=== PATIENT | male | born 1940 | race Caucasian/White ===

== ENCOUNTER → 2020-02-11 09:32 | Outpatient (CLI) | payer MEDICARE, SELFPAY ==
[2020-02-12 02:06] LABS: COVID19 Sendout Not Detected (Not Detect)
== END ==
PROVIDERS: Visit Provider Nurse Practitioner
DX: Z11.59 Encounter for screening for other viral diseases (principal)
CPT/HCPCS: 87635

== ENCOUNTER 2020-02-14 09:26 | Inpatient (IN) | payer MEDICARE, SELFPAY ==
[2020-02-05 13:02] VITALS: BMI 41.1
[2020-02-14] VITALS (16 sets, daily range): BP systolic 123–148; BP diastolic 61–102; PULSE 47–67; RESP 8–24; TEMP 35.7–36.4; O2SAT 89–99; BMI 41.1
--- NOTE | 2020-02-14 | DI.RAD.S_ITS ---
PROCEDURE: XR LUMBAR SPINE 2-3V INDICATIONS: L3-5 TLIF TECHNIQUE: 2 intraoperative fluoroscopic views of the lumbar spine were acquired. COMPARISON: None. FINDINGS: Intraoperative fluoroscopic images shows transpedicular fusion of L3 through L5 vertebral bodies with intervertebral disc spacer placement. IMPRESSION: Fluoro guidance was provided intraoperatively for transpedicular fusion of L3 through L5 vertebral bodies. Dictated by: Morris Spencer M.D. on 02/14/2020 at 14:41 Approved by: Morris Spencer M.D. on 02/14/2020 at 14:42
[2020-02-14] MEDS: LACTATED RINGERS 1,000 ML 42 ML IV ×3 (10:43→15:32)
[2020-02-14 11:00] LABS: Add Manual Diff / Slide Review NO; Basophils Absolute Auto 100 /uL (0-100); Basophils Percent Auto 1.1 % (0-2); Eosinophils Absolute Auto 600 /uL (0-450); Eosinophils Percent Auto 8.3 % (2-4); Hemoglobin 12.6 g/dL (13.5-17.5); Lymphocytes Absolute Auto 1800 /uL (1100-4500); Lymphocytes Percent Auto 25.2 % (25-40); Mean Corpuscular HGB Conc 33.9 % (30-36); Mean Corpuscular Hemoglobin 35.4 PG (26-34); Mean Corpuscular Volume 104.3 fL (80-100); Monocytes Absolute Auto 900 /uL (0-900); Monocytes Percent Auto 12.4 % (3-14); Neutrophils Absolute Auto 3800 /uL (1500-7000); Platelet Count 217 X10^3/uL (150-400); Red Blood Cell Count 3.55 X10^6/uL (4.5-5.9); Red Cell Distribution Width 14.3 % (11.6-14.8); White Blood Cell Count 7.1 X10^3/uL (4.5-11.0)
--- NOTE | 2020-02-14 11:01 | PM.PREOP ---
Pre-operative Note COVID-19 COVID-19 status: Negative Result date/Date tested (Pos, Neg/Pending): 02/12/20 Interval Note History & Physical reviewed/Exam performed by Physician: Yes Changes to H&P: No
[2020-02-14 11:34] LABS: Alanine Aminotransferase 38 IU/L (<50); Albumin Globulin Ratio 1.5 (1.0-2.8); Alkaline Phosphatase 121 U/L (38-126); Aspartate Aminotransferase 38 IU/L (17-59); BUN Creatinine Ratio 26.9 (6-22); Bilirubin Total 0.8 mg/dL (0.2-1.3); Blood Urea Nitrogen 25 mg/dL (9-20); Calcium 9.6 mg/dL (8.4-10.2); Carbon Dioxide 29 mmol/L (22-32); Chloride 105 mmol/L (98-107); Estimated Glomerular Filt Rate > 60.0 mL/min (>60); Globulin 2.6 g/dL (1.7-4.1); Glucose 93 mg/dL (80-110); HEMOLYSIS < 15 (0-50); Potassium 3.9 mmol/L (3.4-5.1); Sodium 139 mmol/L (137-145); Total Protein 6.6 g/dL (6.3-8.2)
[2020-02-14] MEDS: CEFAZOLIN 2 GM/100 ML FROZ.PIGGY IV ×2 (11:58→20:43)
--- NOTE | 2020-02-14 12:36 | SUR.OPER ---
Prone on spine table, head in foam head support, padded chest and pelvic supports, gel pad at knees, lower legs supported by pillows; nipples, genitalia and toes free of pressure, arms secured on foam padded arm boards at <90 degrees abduction. Tape over blanket at thigh secured to table.
[2020-02-14] MEDS: BUPIVACAINE LIPOSOME 266 MG/20 ML VIAL INJ (12:49)
[2020-02-14] MEDS: BUPIVACAINE 0.25% W/ EPI 30 ML VIAL INJ (12:50)
[2020-02-14] MEDS: ACETAMINOPHEN IV 1,000 MG/100 ML VIAL 400 MG IV (13:28)
--- NOTE | 2020-02-14 15:37 | P.OP_ITS ---
Operative Date/Time/Diagnoses Date of procedure: 02/14/20 Time of procedure: 12:37 Pre-op diagnosis: 1. L3-4, L4-5 spondylolisthesis 2. L3-4, L4-5 spinal stenosis with neurogenic claudication Post-op diagnosis: same Procedure & Clinicians Procedure: 1. L3-4, L4-5 Postero-lateral and posterior interbody fusion 2. L3-4, L4-5 interbody cage placement. 3. L3-4, L4-5 decompressive laminectomy with bilateral facetecomies 4. L3-4, L4-5 Posterior segmental instrumentation 5. [place] of bone marrow from iliac crest 6. Utilization of microsurgical technique and operating microscope Same procedure as scheduled: Yes Indications: Patient has been having chronic back pain and worsening lumbar radiculopathy. Patient failed multiple conservative management with worsening pain weakness and numbness in her lower extremity. Patient has been having difficulty performing activity of daily living. After discussing risks benefits of treatment options, patient elected proceed with surgery. Surgeon: Maris Sierra Psychologist Military Personnel: Jillian Gutierrez Click Yes if Unassisted: No Anesthesia Type: General Operative Notes Closure Type: primary Specimen(s): none sent Prosthetic devices, grafts, tissues, transplants, or devices: Globus revolve screws, Rise cages Applied: catheter Estimated Blood Loss (mL): 100 Blood products transfused: none Procedure in detail: Patient was seen in the preoperative area. Risks and benefits of the surgery was discussed with the patient. Informed consent was obtained from the patient and placed in the chart. Surgical site was marked. Patient was taken to the operative room. General anesthesia was administered. Prophylactic antibiotic was given to the patient less than 30 min before the incision was made. Patient was placed into a prone position on the Ziggy table. Patient's back was then prepped and draped in the sterile fashion. Time- out was performed at this time. Using AP and lateral C-arm imaging the interval between L3-4, L4-5 was identified and marked on patient's back. A 2 inch incision 2 in from midline was made on the right side first. The fascia was incised in line with skin incision. Globus MARS retractors was placed inside the incision and docked onto the L3 and L4 lamina. Using microsurgical technique and operating microscope, a L3 and L4 laminectomy and L3-4, L4-5 facetectomy was performed using a Kerrison rongeur. The disc space at L3-4, L4-5 was identified. And a total diskectomy was performed at L3-4, L4-5 level. The endplates were decorticated using a rasp and shaver. The patient was found to have severe central and neuroforaminal stenosis at both levels. Decompression was successful after the laminectomy and facetectomy was completed at both levels. The total diskectomy and decortication was performed at L3-4, L4-5 level in order to to accomplish a L3- 4, L4-5 fusion. The local bone from the laminectomy and facetectomy was saved for local bone grafting. After the total diskectomy and decortication was completed, Trifecta bone graft material was combined with local bone that was harvested earlier. At this time, a separate skin is incision was made over the iliac crest. A Jamshidi needle was inserted into the iliac crest through a separate skin incision. 5 cc of bone marrow aspiration was obtained through the separate skin incision using a Jamshidi needle from the iliac crest. The bone marrow aspiration was combined with local bone and the Trifecta bone grafting material. The bone grafting material was placed into the L3-4, L4-5 interbody space along with two cages, one expandable cage at each level. The cages were expanded to their maximum height using the torque limiting screwdriver. At this time a mirror image incision was made on the left side. The fascia was incised in line with the skin incision. Globus MARS retractor was inserted and docked onto the L3-4, L4-5 posterolateral gutter. Using the power drill, posterior-lateral decortication was performed at L3-4, L4-5 level until bleeding cortical bone was identified. The remaining bone grafting material was placed into the L3-4, L4-5 posterior lateral gutter he order to accomplish posterolateral fusion at the L3-4, L4-5 levels. Using the double C-arm technique, pedicle screws were placed into the L3, L4, L5 pedicles bilaterally. This was done by placing the Jamshidi needle into the pedicles, then placing the guidewires over the Jamshidi needle, and finally placing the cannulated screws over the guidewires bilaterally. After the pedicle screws were placed, 2 titanium rods was locked into the heads of the pedicle screws using locking caps and torque limiting screwdriver. Total 6 pedicles screws were placed. After all the hardware was placed, and confirmed with AP and lateral C-arm imaging, the wound was then irrigated with sterile normal saline and packed with Ray-Pasquale gauze for 3 min to accomplish hemostasis. After the gauze was removed the deep fascia was closed with #1 Vicryl suture. The subcutaneous layer was closed with 2-0 Vicryl. The skin was closed with skin stephanie. Patient tolerated the procedure well. There were no complications. Complications: none Post-operative Condition: stable Disposition: PACU Plan for aftercare: Admit to inpatient hospital
[2020-02-14] MEDS: fentaNYL 100 MCG/2 ML INJ IV ×3 (15:42→16:06)
[2020-02-14] MEDS: HYDROMORPHONE 2 MG INJ IV ×3 (15:46→16:10)
[2020-02-14] MEDS: OXYCODONE IR 5 MG TABLET PO (16:20)
[2020-02-14] MEDS: hydrOXYzine 50 MG/ML INJ 25 MG IM (16:24)
[2020-02-14] MEDS: SODIUM CHLORIDE 0.9% 1,000 ML 100 ML IV (17:57)
[2020-02-14] MEDS: HYDROMORPHONE 0.5 MG INJ IV ×2 (18:12→21:16)
[2020-02-14] MEDS: DOCUSATE 100 MG CAPSULE PO (20:43)
[2020-02-14] MEDS: SENNOSIDES 8.6 MG TABLET 17.2 MG PO (20:43)
[2020-02-14] MEDS: ATORVASTATIN 20 MG TABLET 40 MG PO (20:43)
[2020-02-14] MEDS: GABAPENTIN 300 MG CAPSULE 900 MG PO (20:43)
[2020-02-14] MEDS: TRAZODONE 50 MG TABLET 150 MG PO (20:43)
[2020-02-14] MEDS: VIT C/E/ZN/COPPR/LUTEIN/ZEAXAN CAPSULE 1 CAP PO (20:44)
[2020-02-14] MEDS: OXYCODONE IR 10 MG TABLET PO (21:16)
[2020-02-15] VITALS (10 sets, daily range): BP systolic 105–148; BP diastolic 52–75; PULSE 42–77; RESP 16–24; TEMP 36.1–36.7; O2SAT 94–98
--- NOTE | 2020-02-15 03:14 | PC.NURSE ---
0020 Shift assessment performed, noted back dressing was saturated with bloody drainage. Reinforced dressing with ABD pad. will monitor.
[2020-02-15] MEDS: CEFAZOLIN 2 GM/100 ML FROZ.PIGGY IV (03:55)
[2020-02-15] MEDS: OXYCODONE IR 10 MG TABLET PO ×5 (04:09→20:34)
[2020-02-15] MEDS: SODIUM CHLORIDE 0.9% FLUSH 10 ML IV ×3 (05:00→20:35)
[2020-02-15 06:26] LABS: Hematocrit 33.7 % (41-53); Hemoglobin 11.3 g/dL (13.5-17.5)
[2020-02-15] MEDS: VIT C/E/ZN/COPPR/LUTEIN/ZEAXAN CAPSULE 1 CAP PO ×2 (09:10→20:35)
[2020-02-15] MEDS: DOCUSATE 100 MG CAPSULE PO ×2 (09:10→20:34)
[2020-02-15] MEDS: GABAPENTIN 300 MG CAPSULE 900 MG PO ×2 (09:10→20:34)
[2020-02-15] MEDS: ESCITALOPRAM 10 MG TABLET 20 MG PO (09:10)
[2020-02-15] MEDS: FOLIC ACID 0.4 MG TABLET 1.2 MG PO (09:11)
[2020-02-15] MEDS: POTASSIUM CHLORIDE 10 MEQ TAB PO (09:11)
[2020-02-15] MEDS: CYANOCOBALAMIN (VITAMIN B-12) 500 MCG TABLET 1000 MCG PO (09:11)
[2020-02-15] MEDS: FLUTICASONE 120 SPRAY/16 GM SPRAY.SUSP NASAL (09:13)
--- NOTE | 2020-02-15 09:40 | PT.IIE ---
Current Diagnoses Other secondary scoliosis, lumbar region (02/14/20) Spondylolisthesis, lumbar region (02/14/20) Spinal stenosis, lumbar region without neurogenic claudication (02/14/20) Surgery Performed Operation Date: 02/14/20 11:15 Actual Procedures p L3-4, L4-5 TLIF w. posterior instrumentation - Maris Sierra MD Surgical History (Last Updated 02/05/20 @ 13:29 by Carol Lara, RN) History of arthroplasty of both knees (Acute) History of carpal tunnel release of both wrists (Acute) History of colonoscopy (Acute) History of repair of left rotator cuff (Acute) History of repair of right rotator cuff (Acute) History of total right hip arthroplasty (Acute) Hx of bilateral cataract extraction (Acute) Hx of cholecystectomy (Acute) Hx of tonsillectomy (Acute) Hx of umbilical hernia repair (Acute) Medical History (Last Updated 02/06/20 @ 10:50 by Carol Lara RN) Anxiety (Acute) Arthritis (Acute) Ascending aorta dilation (Acute) Carotid artery disease (Acute) Chronic bronchitis (Acute) Chronic diastolic heart failure (Acute) Depression (Acute) Easy bruisability (Acute) Fragile skin (Acute) HLD (hyperlipidemia) (Acute) HTN (hypertension) (Acute) Incomplete right bundle branch block (RBBB) (Acute) Numbness (Acute) GANESH on CPAP (Acute) Sciatica (Acute) Seasonal allergies (Acute) Spinal stenosis of lumbar region (Acute) Spondylolisthesis (Acute) Physical Therapy Inpatient Evaluation/Re-Eval M1 PT/OT-IP Prior Functional Status Start: 02/15/20 13:04 Freq: NEEDED Status: Active Protocol: Document 02/15/20 09:40 AB (Rec: 02/15/20 13:30 AB [id number]) Medical Review Prior Functional Status Medical History Reviewed Yes Communication able to make needs known Mobility and Gait pt stated that he is modified independent with all mobilities using his 4WW for ambulation; only able to ambulate short distances for outdoor mobility and uses electric scooter when doing grocery shopping Social History Household Members spouse Living Arrangements House Number of Floors (Floors) One Floor Number of Stairs To Enter/Railing? 2 steps without rails to enter : pt stated that he usual use his SPC and hold on to window sill for the steps Home Environment High Toilet,Walk in Shower,Tub /Shower Home Equipment Front Wheel Walker,Four Wheel Walker,Straight Cane,Shower Seat without Backrest,Hand Held Shower Additional Social History Comment pt stated that his spouse will not be able to assist him much; spouse uses a 4WW, has a pacemaker and has bad knees per pt pt has an adjustable bed at home M2 PT-IP Current Condition Start: 02/15/20 13:04 Freq: NEEDED Status: Active Protocol: Document 02/15/20 09:40 AB (Rec: 02/15/20 13:30 AB [email or web address]) Physical Therapy Current Condition Current Condition Evaluation Date 02/15/20 Treatment Diagnosis s/p L3-4, L4-5 fusion/lami; difficulty in walking Onset Date 02/14/20 Precautions Lumbar Precautions Log Roll,No Twisting,Limit Bending,Lifting Restriction of 10 lbs,Gait Belt above Incisional Area M3 PT-IP Subjective Start: 02/15/20 13:04 Freq: NEEDED Status: Active Protocol: Document 02/15/20 09:40 AB (Rec: 02/15/20 13:30 AB [id number]) Subjective Physical Therapy Visit Type Type Initial Evaluation Visit Start Time 09:40 Visit Stop Time 10:13 Total Visit Minutes 33 Number of WAREHOUSE LOGISTICS COORDINATOR Visits 0 Physical Therapy Visit Comments Patient Comments pt is agreeable to do PT Therapy Pain Assessment Pain When Pain Assessed At Rest Pain Present Pain Present Pain Reported Location back Intensity 1 Scale Used Numeric (0 - 10) Pain Management Techniques Apply Cold,Distraction, Modification of Treatment,Re- positioning,Timing of Activity with Medications M4 PT-IP Mobility and Gait Start: 02/15/20 13:04 Freq: NEEDED Status: Active Protocol: Document 02/15/20 09:40 AB (Rec: 02/15/20 13:30 AB [email or web address]) PT-Bed Mobility Assessment Rolling Type of Rolling Log Rolling Level of Assist Minimal Assistance,1 Person Assistance Supine to Sit Supine to Sit Minimal Assistance,1 Person Assistance PT-Transfer Assessment Sit to and From Stand Sit to and from Stand Contact Guard Assistance,1 Person Assistance,Use of Upper Extremities Equipment Transfer Assistive Device Gait Belt,Front Wheeled Walker Orthotic/Prosthetic Devices or Brace: No Transfers Transfer Destination Chair Transfer Technique ambulated using FWW Transfer Ability Level of Assist Minimal Assistance,1 Person Assistance,Use of Upper Extremities Comments Mobility Comments educated pt on back precautions and log roll bed mobility. completed supine to sit min A and cues. pt was able to sit on EOB SBA. pt without complaints. stated pain is ~ 1/10. completed sit to stand CGA and ambulated in room using FWW min A ~ 30 ft. pt agreed to sit up onchair. positioned on chair. call light and table placed within reach. Ice pack provided. Gait Assessment Gait Gait Assistance Required: Minimum Assistance Distance (Feet) 30 Able to Maintain Weight Bearing Status Yes During Gait Assistive Devices Assistive Device Gait Belt,Front Wheeled Walker Orthotic/Prosthetic Devices or Brace: No Gait Deviations General Gait Pattern Antalgic,Decreased Stride Length,Decreased Feet Clearance,Step-to Gait Factors Limiting Gait Function Factors Limiting Gait Function Decreased Activity Tolerance, Decreased Sensation,Decreased Strength,Incoordination,Pain, Poor Balance Comments Gait Comments pls refer to mobility section for details PT-Balance Assessment Sitting Balance and Reactions Static Sitting Balance Ability Good Dynamic Sitting Balance Ability Good Standing Balance and Reactions Static Standing Balance Ability Fair Dynamic Standing Balance Ability Fair Device Used FWW M5 PT-IP Objective Assessments Start: 02/15/20 13:04 Freq: NEEDED Status: Active Protocol: Document 02/15/20 09:40 AB (Rec: 02/15/20 13:30 AB [id number]) Orientation Orientation/Cognition Level of Alertness Alert Orientation Name,Place,Situation Language Function Ability Hard of Hearing Safety Awareness Understands Safety Issues Memory Description No Deficits Noted Gross Range of Motion Lower Extremity ROM Assessment Within Functional Limits Strength Lower Extremity Strength Assessment Within Functional Limits Sensation Assessment Sensation Gross Sensation Right LE Impaired Comments Sensation Comments stated that RLE has decrease sensation and can only feel ~ 90% Muscle Tone Muscle Tone WNL Yes M6 PT-IP Treatment Start: 02/15/20 13:04 Freq: NEEDED Status: Active Protocol: Document 02/15/20 09:40 AB (Rec: 02/15/20 13:30 AB [id number]) Physical Therapy Treatment Education Education Provided Precautions,Weight Bearing Status,Post-Op Packet,Safety M7 PT-IP Assessment and Plan Start: 02/15/20 13:04 Freq: NEEDED Status: Active Protocol: Document 02/15/20 09:40 AB (Rec: 02/15/20 13:30 AB [email or web address]) PT Summary Assessment and Plan Potential Rehabilitation Potential Good Status of Condition at Evaluation Stable Summary Impairments Pain,ROM,Strength,Balance, Coordination,Sensation,Tone, Cognition,Bed Mobility, Transfers,Gait,Activity Tolerance Assessment Summary pt requiring CGA to min A with mobility and uses FWW for ambulation. pt plans to go home. derick will not be able to assist pt much due to her own medical issues. stated that her daughter may assist but does not stay at home with them. pt will likely progress with mobility. will assess progress for safe d/c. Goals Bed Mobility Goal Standby Assistance Transfer Goal Standby Assistance,Front Wheeled Walker Gait Goal Standby Assistance,Front Wheel Walker Gait Distance 100 Other Goals up/down 2 steps SPC SBA Days to Meet Goals 5 Frequency of Treatment Frequency Of Treatment Twice a Day Treatment Plan Physical Therapy Treatment Plan Bed Mobility Training,Transfer Training,Gait Training, Therapeutic Exercise,Balance Retraining,Post Op Education, Discharge Planning,Hot or Cold Pack,Neuromuscular Re-ed, Coordination Retraining,Manual Therapy Other Recommendations and Next Treatment ambulation; stair climbing Focus Recommendations To Nursing Amount of Assist Needed 1 Person Assist Discharge Recommendations PT Discharge Recommendations Home with Assistance Transportation Needs at Discharge Private Vehicle
[2020-02-15] MEDS: ACETAMINOPHEN 325 MG TABLET 650 MG PO (10:01)
[2020-02-15] MEDS: FUROSEMIDE 20 MG TABLET PO (10:02)
[2020-02-15] MEDS: LOSARTAN 25 MG TABLET PO (10:02)
[2020-02-15] MEDS: AMLODIPINE 5 MG TABLET PO (10:02)
[2020-02-15] MEDS: METOPROLOL ER 50 MG TABLET PO (10:03)
--- NOTE | 2020-02-15 10:08 | PM.PNPO.1 ---
Subjective Subjective Date Patient Seen: 02/15/20 Time Patient Seen: 10:08 Interval history: POD #1 s/p L3-[address] Sierra. Patient's pain has been well controlled and reports a 1/10. He is with physical therapy at the moment and was able to sit up on edge of bed. He has a Vogel catheter in place. Does not report any significant prostate issues. He does sound short of breath when he moves, but this has been reported as baseline for him prior to surgery. Exam Vital Signs (past 8 hours): - 02/15/20 04:25 02/15/20 07:51 02/15/20 09:09 Temperature 96.9 F L 97.8 F Pulse Rate 67 56 L 65 Respiratory Rate 24 20 16 Blood Pressure 148/74 H 105/62 Pulse Oximetry 98 98 95 02/15/20 10:02 02/15/20 10:03 Temperature Pulse Rate 51 L 51 L Respiratory Rate Blood Pressure 128/71 128/71 Pulse Oximetry Oxygen Delivery Method Room Air Oxygen Flow Rate 0 Narrative Exam Narrative: Patient is sitting on edge of bed. Dressing on the back is completely saturated and reinforced last night. When dressing was removed right side did have some active bleeding. It did stop prior to new dressing being applied. There is quite a bit of ecchymosis on the right side. New dressing applied. Calves are soft, compressible, nontender bilaterally. SCDs were on prior to getting up. Objective Labs Result Diagrams: 02/15/20 06:00 02/14/20 10:42 Labs: Laboratory Results - last 24 hr 02/14/20 02/14/20 02/14/20 10:42 10:42 10:42 WBC 7.1 RBC 3.55 L Hgb 12.6 L Hct 37.0 L MCV 104.3 H MCH 35.4 H MCHC 33.9 RDW 14.3 Plt Count 217 Neut % (Auto) 53.0 Lymph % (Auto) 25.2 [place] % (Auto) 12.4 Eos % (Auto) 8.3 H Baso % (Auto) 1.1 Neut # (Auto) 3800 Lymph # (Auto) 1800 [place] # (Auto) 900 Eos # (Auto) 600 H Baso # (Auto) 100 Sodium 139 Potassium 3.9 Chloride 105 Carbon Dioxide 29 BUN 25 H Creatinine 0.93 Estimated GFR > 60.0 BUN/Creatinine Ratio 26.9 H Glucose 93 Calcium 9.6 Total Bilirubin 0.8 AST 38 ALT 38 Alkaline Phosphatase 121 Total Protein 6.6 Albumin 4.0 Globulin 2.6 Albumin/Globulin Ratio 1.5 Blood Type O Positive Antibody Screen Negative 02/15/20 06:00 WBC RBC Hgb 11.3 L Hct 33.7 L MCV MCH MCHC RDW Plt Count Neut % (Auto) Lymph % (Auto) [place] % (Auto) Eos % (Auto) Baso % (Auto) Neut # (Auto) Lymph # (Auto) [place] # (Auto) Eos # (Auto) Baso # (Auto) Sodium Potassium Chloride Carbon Dioxide BUN Creatinine Estimated GFR BUN/Creatinine Ratio Glucose Calcium Total Bilirubin AST ALT Alkaline Phosphatase Total Protein Albumin Globulin Albumin/Globulin Ratio Blood Type Antibody Screen Assessment & Plan Post-op Postoperative Procedures: Procedures Operation Date: 02/14/20 11:15 Actual Procedures Side Surgeon p L3-4, L4-5 TLIF w. posterior instrumentation Maris Sierra MD Patient will mobilize with physical therapy today. No excessive bending, lifting, or twisting. Vogel catheter will be removed today. Continue to monitor dressing, and bleeding. Will wait to restart ASA until risk of bleeding and risk of epidural hematoma has decreased, likely on postop day 4 or 5. His morbid obesity and coronary artery disease is likely attributing to his shortness of breath with PT, especially since this is his baseline. Continue current pain control. Patient will likely discharge home with in next 2-3 days. Quality VTE Deep Vein Thrombosis/Pulmonary Embolism Present on Admission: No
--- NOTE | 2020-02-15 11:03 | CM.DANOTE ---
DCP: Case received, EMR reviewed and met with patient. Introduced self and role. Was able to obtain information from patient regarding his baseline activity status prior to surgery, as well as his current living situation. DCP assessment completed with information currently available. Patient is a 79 year old male who admitted yesterday morning to the care of the orthopedic team. PCP: Dr. Jansen at [facility]. Payer: confirmed: Medicare/[employer]. Patient came to the hospital for a surgical procedure. He had L3-4, L4-5, posteo-lateral interbody fusion. Patient has had history of spinal stenosis. Met with patient in his room. He is alert and oriented. He was sitting up in bed. Stated, before he had his surgery, he would have never been able to sit up like that. Stated, he had to sleep on his side. Patient uses a cane/walker at home. He resides with his spouse, Shoshana. Stated, she has bad knees, so it's hard for her to get around. He mentioned that his daughter, Cyndi, would help out, but would not be staying with him. Stated that she lives in [facility], as patient resides in [facility]. Stated that he has 2 steps to get into his home. Mentioned, does not want rehab. P: DCP to continue to follow closely. Will see how he does with P.T. Goal for patient is home. Soni Reyes RN/Vending Machine Technician
--- NOTE | 2020-02-15 13:25 | OT.IP.EVAL ---
Current Diagnoses Other secondary scoliosis, lumbar region (02/14/20) Spondylolisthesis, lumbar region (02/14/20) Spinal stenosis, lumbar region without neurogenic claudication (02/14/20) Surgery Performed Operation Date: 02/14/20 11:15 Actual Procedures p L3-4, L4-5 TLIF w. posterior instrumentation - Maris Sierra MD Past Medical History (Last Updated 02/06/20 @ 10:50 by Carol Lara, RN) Anxiety (Acute) Arthritis (Acute) Ascending aorta dilation (Acute) Carotid artery disease (Acute) Chronic bronchitis (Acute) Chronic diastolic heart failure (Acute) Depression (Acute) Easy bruisability (Acute) Fragile skin (Acute) HLD (hyperlipidemia) (Acute) HTN (hypertension) (Acute) Incomplete right bundle branch block (RBBB) (Acute) Numbness (Acute) GANESH on CPAP (Acute) Sciatica (Acute) Seasonal allergies (Acute) Spinal stenosis of lumbar region (Acute) Spondylolisthesis (Acute) Surgical History (Last Updated 02/05/20 @ 13:29 by Carol Lara RN) History of arthroplasty of both knees (Acute) History of carpal tunnel release of both wrists (Acute) History of colonoscopy (Acute) History of repair of left rotator cuff (Acute) History of repair of right rotator cuff (Acute) History of total right hip arthroplasty (Acute) Hx of bilateral cataract extraction (Acute) Hx of cholecystectomy (Acute) Hx of tonsillectomy (Acute) Hx of umbilical hernia repair (Acute) Occupational Therapy Inpatient Evaluation/Re-Eval M1 PT/OT-IP Prior Functional Status Start: 02/15/20 13:04 Freq: NEEDED Status: Active Protocol: Document 02/15/20 09:40 AB (Rec: 02/15/20 13:30 AB [id number]) Medical Review Prior Functional Status Medical History Reviewed Yes Communication able to make needs known Mobility and Gait pt stated that he is modified independent with all mobilities using his 4WW for ambulation; only able to ambulate short distances for outdoor mobility and uses electric scooter when doing grocery shopping Social History Household Members spouse Living Arrangements House Number of Floors (Floors) One Floor Number of Stairs To Enter/Railing? 2 steps without rails to enter : pt stated that he usual use his SPC and hold on to window sill for the steps Home Environment High Toilet,Walk in Shower,Tub /Shower Home Equipment Front Wheel Walker,Four Wheel Walker,Straight Cane,Shower Seat without Backrest,Hand Held Shower Additional Social History Comment pt stated that his spouse will not be able to assist him much; spouse uses a 4WW, has a pacemaker and has bad knees per pt pt has an adjustable bed at home M1 PT/OT-IP Prior Functional Status Start: 02/15/20 15:32 Freq: NEEDED Status: Active Protocol: Document 02/15/20 15:34 RM (Rec: 02/15/20 15:53 RM [id number]) Medical Review Prior Functional Status Medical History Reviewed Yes Communication able to make needs known Mobility and Gait pt stated that he is modified independent with all mobilities using his 4WW for ambulation; only able to ambulate short distances for outdoor mobility and uses electric scooter when doing grocery shopping Activities of Daily Living and IADL's (I) w/ ADLs, cooking, and dishes. assists with heavy housekeeping. Social History Household Members spouse Living Arrangements House Number of Floors (Floors) One Floor Number of Stairs To Enter/Railing? 2 stairs to enter Home Environment High Toilet,Walk in Shower,Tub /Shower Home Equipment Four Wheel Walker,Shower Seat without Backrest,Hand Held Shower,Charge Entry,Sock Aid Employment Status Retired Additional Social History Comment Reports recieved blankmaker and sock aid in 2015 w/ hip surgery, but would like to review use with dressing while here. M2 OT-IP Current Condition Start: 02/15/20 15:32 Freq: Status: Active Protocol: Document 02/15/20 15:34 RM (Rec: 02/15/20 15:53 RM [id number]) Occupational Therapy Current Condition Current Condition Evaluation Date 02/15/20 Treatment Diagnosis L3-L5 TLIF d/t spondylolisthesis Diagnosis Onset Date 02/15/20 Post Operative Precautions Lumbar Precautions Log Roll,No Twisting,Limit Bending,Lifting Restriction of 10 lbs,Gait Belt above Incisional Area Weight Bearing Status Weight Bearing Status Weight Bear as Tolerated M3 OT- IP Subjective and Pain Start: 02/15/20 15:32 Freq: Status: Active Protocol: Document 02/15/20 15:34 RM (Rec: 02/15/20 15:53 RM [id number]) OT- Subjective Occupational Therapy Visit Type Type Initial Evaluation Visit Start Time 13:25 Visit Stop Time 13:55 Total Visit Minutes 30 Occupational Therapy Visit Comments Patient/Caregiver Goals Return home with his . OT Pain Assessment Pain When Pain Assessed During Mobility Location back Intensity 6 Scale Used Numeric (0 - 10) M4 OT- IP ADL's Start: 02/15/20 15:32 Freq: Status: Active Protocol: Document 02/15/20 15:34 RM (Rec: 02/15/20 15:53 RM [id number]) OT ADL-Grooming General Evaluation Grooming Ability Contact Guard Assistance Areas Needing Assistance Retrieving/Set-up of Grooming Items OT ADL-Toileting General Evaluation Toileting Ability Standby Assistance Devices Toileting Assistive Devices Grab Bars M6 OT- IP Functional Cognition Start: 02/15/20 15:32 Freq: Status: Active Protocol: Document 02/15/20 15:34 RM (Rec: 02/15/20 15:53 RM [id number]) Cognitive Factors Limiting Selfcare Function Cognitive Ability Patient Orientation Name,Month,Date,Year,Place, Situation Attention Span Ability Capable of Focused Attention, Capable of Sustained Attention Ability to Follow Commands Able to Follow Multi-Step Commands Safety Awareness Underestimates Need for Assistance OT- Vision and Hearing OT- Hearing Assessment OT- Hearing Assessment WFL OT- Vision Assessment Visual Acuity WFL M7 OT- IP Mobility and Balance Start: 02/15/20 15:32 Freq: Status: Active Protocol: Document 02/15/20 15:34 RM (Rec: 02/15/20 15:53 RM [id number]) OT- Bed Mobility Assessment Rolling Type of Rolling Log Rolling Level of Assistance Standby Assistance Supine to Sit Supine to Sit Assist Standby Assistance Sit to Supine Sit to Supine Assist Standby Assistance Scooting Scooting Up and Down in Bed Standby Assistance OT-Transfer Assessment Sit to and From Stand Sit to and from Stand Standby Assistance Transfers Transfer Ability Standby Assistance Technique Transfer Destination Bed,Toilet Devices Transfer Assistive Devices Front Wheeled Walker OT- Gait Assessment Gait Gait Assistance Required: Contact Guard Assist Assistive Devices Assistive Device Front Wheeled Walker OT- Balance Assessment Standing Balance and Reactions Dynamic Standing Balance Ability Fair M9 OT- IP Assessment and Plan Start: 02/15/20 15:32 Freq: Status: Active Protocol: Document 02/15/20 15:34 RM (Rec: 02/15/20 15:53 RM [id number]) OT Summary Assessment and Plan Potential Rehabilitation Potential Good Analytic Complexity at Evaluation Moderate Patient is limited this session by pain. Tolerating ambulation to bathroom for toileting and hand hygiene at sink, but then required return to bed d/t increased pain. Also reports having long handled equipment from prior hip surgery but requires review for use with LB drsg following lumbar precautions. Will benefit from additional intervention to improve independence prior to discharge home. Summary OT Impairments Pain,Balance,Functional Mobility,Dressing,Toileting, Bathing,Toilet Transfers, Shower Transfers,Activity Tolerance Goals Dressing Goal Independent,Charge Entry,Sock Aid Toileting Goal Independent Bathing Goal Independent Toilet Transfer Goal Independent Shower Transfer Goal Independent Frequency of Treatment Frequency Of Treatment Once a Day Treatment Plan OT Treatment Plan ADL Training,Functional Mobility,Therapeutic Exercises Discharge Recommendations OT Discharge Recommendations Home with Assistance
--- NOTE | 2020-02-15 14:30 | PT.IPTN ---
Current Diagnoses Other secondary scoliosis, lumbar region (02/14/20) Spondylolisthesis, lumbar region (02/14/20) Spinal stenosis, lumbar region without neurogenic claudication (02/14/20) Surgery Performed Operation Date: 02/14/20 11:15 Actual Procedures p L3-4, L4-5 TLIF w. posterior instrumentation - Maris Sierra MD Physical Therapy Treatment Note M2 PT-IP Current Condition Start: 02/15/20 13:04 Freq: NEEDED Status: Active Protocol: Document 02/15/20 09:40 AB (Rec: 02/15/20 13:30 AB [id number]) Physical Therapy Current Condition Current Condition Evaluation Date 02/15/20 Treatment Diagnosis s/p L3-4, L4-5 fusion/lami; difficulty in walking Onset Date 02/14/20 Precautions Lumbar Precautions Log Roll,No Twisting,Limit Bending,Lifting Restriction of 10 lbs,Gait Belt above Incisional Area M3 PT-IP Subjective Start: 02/15/20 13:04 Freq: NEEDED Status: Active Protocol: Document 02/15/20 14:30 AB (Rec: 02/15/20 16:40 AB [id number]) Subjective Physical Therapy Visit Type Type Treatment Note Visit Start Time 14:30 Visit Stop Time 15:15 Total Visit Minutes 45 Number of ROPE TIER Visits 0 Physical Therapy Visit Comments Patient Comments pt is agreeable to do PT Therapy Pain Assessment Pain When Pain Assessed At Rest Pain Present Pain Present Pain Reported Location back Intensity 1 Scale Used increases with mobility Pain Management Techniques Modification of Treatment,Re- positioning,Timing of Activity with Medications M4 PT-IP Mobility and Gait Start: 02/15/20 13:04 Freq: NEEDED Status: Active Protocol: Document 02/15/20 14:30 AB (Rec: 02/15/20 16:40 AB [id number]) PT-Bed Mobility Assessment Rolling Type of Rolling Log Rolling Level of Assist Standby Assistance Supine to Sit Supine to Sit Standby Assistance Sit to Supine Sit to Supine Standby Assistance PT-Transfer Assessment Sit to and From Stand Sit to and from Stand Contact Guard Assistance, Minimal Assistance,1 Person Assistance,Use of Upper Extremities Equipment Transfer Assistive Device Gait Belt,Front Wheeled Walker Orthotic/Prosthetic Devices or Brace: No Transfer Ability Level of Assist Contact Guard Assistance, Minimal Assistance,1 Person Assistance,Use of Upper Extremities Comments Mobility Comments completed log roll bed moblity SBA. completed sit to stand CGA to min A with initial unsteadiness and stated due to RLE pain. stated that RLE is chronic. ambulated in room using FWW CGA to min A. agreed to ambulate in hallway and completed ~ 100 ft using FWW CGA. completed up/down step stool using SPC on L and side of FWW (simulating window sill/ledge at home) CGA. completed 2 sets. pt requested to go back to bed afterwards and completed sit to supine SBA. positioned in bed. call light and table placed within reach. Gait Assessment Gait Gait Assistance Required: Contact Guard Assist,Minimum Assistance Distance (Feet) 100 Able to Maintain Weight Bearing Status Yes During Gait Assistive Devices Assistive Device Gait Belt,Front Wheeled Walker Orthotic/Prosthetic Devices or Brace: No Gait Deviations General Gait Pattern Antalgic,Decreased Stride Length,Decreased Feet Clearance,Step-to Gait Factors Limiting Gait Function Factors Limiting Gait Function Decreased Activity Tolerance, Decreased Strength,Limited Range of Motion,Pain,Poor Balance Comments Gait Comments pls refer to mobility section for details Stair Climbing Assessment Evaluation Level of Assist On Stairs Contact Guard Assistance,1 Person Assistance Devices Stair Climbing Assistive Devices Straight Cane,Right Railing Technique/Endurance Stair Climbing Direction Ascend and Descend Stair Climbing Technique Step to Step Number of Steps Climbed 1 Stair Climbing Set # Repetitions (reps) 2 Comments Stair Climbing Comments completed up/down step stood using SPC on L and edge of FWW as ledge (simulating home set set); completed with CGA M5 PT-IP Objective Assessments Start: 02/15/20 13:04 Freq: NEEDED Status: Active Protocol: Document 02/15/20 09:40 AB (Rec: 02/15/20 13:30 AB [id number]) Orientation Orientation/Cognition Level of Alertness Alert Orientation Name,Place,Situation Language Function Ability Hard of Hearing Safety Awareness Understands Safety Issues Memory Description No Deficits Noted Gross Range of Motion Lower Extremity ROM Assessment Within Functional Limits Strength Lower Extremity Strength Assessment Within Functional Limits Sensation Assessment Sensation Gross Sensation Right LE Impaired Comments Sensation Comments stated that RLE has decrease sensation and can only feel ~ 90% Muscle Tone Muscle Tone WNL Yes M6 PT-IP Treatment Start: 02/15/20 13:04 Freq: NEEDED Status: Active Protocol: Document 02/15/20 14:30 AB (Rec: 02/15/20 16:40 AB [id number]) Physical Therapy Treatment Education Education Provided Precautions,Safety M7 PT-IP Assessment and Plan Start: 02/15/20 13:04 Freq: NEEDED Status: Active Protocol: Document 02/15/20 14:30 AB (Rec: 02/15/20 16:40 AB [id number]) PT Summary Assessment and Plan Potential Rehabilitation Potential Good Summary Impairments Pain,ROM,Strength,Balance, Coordination,Sensation,Bed Mobility,Transfers,Gait, Activity Tolerance Progress Towards Goals Slow Progress due to Activity Tolerance Assessment Summary pt requiring CGA to min A with mobility. stated that his son may provide some assistance if needed. pt plans to go home with family to assist. Goals Bed Mobility Goal Independent Transfer Goal Independent,Front Wheeled Walker Gait Goal Standby Assistance,Front Wheel Walker Gait Distance 100 Other Goals up/down 2 steps SPC on L and R side ledge SBA Days to Meet Goals 5 Frequency of Treatment Frequency Of Treatment Twice a Day Treatment Plan Physical Therapy Treatment Plan Bed Mobility Training,Transfer Training,Gait Training, Therapeutic Exercise,Balance Retraining,Post Op Education, Discharge Planning,Hot or Cold Pack,Neuromuscular Re-ed, Coordination Retraining,Manual Therapy Other Recommendations and Next Treatment ambulation; stair climbing Focus Recommendations To Nursing Amount of Assist Needed 1 Person Assist Discharge Recommendations PT Discharge Recommendations Home with Assistance Transportation Needs at Discharge Private Vehicle
--- NOTE | 2020-02-15 14:40 | PC.NURSE ---
SHIFT SUMMARY PATIENT'S DRSG HAD BEEN RE-INFORCED D/T SATURATION ONTO BLUE PAD UNDER PATIENT ON NOC SHIFT. ELI ESTEVEZ NOTIFIED OF SAME THIS AM ON MORNING ROUNDS. WHILE PATIENT SITTING AT BEDSIDE W/ PHYSICAL THERAPY IN SESSION, THIS LANGUAGE ASST REMOVED DRSG AND HERB ASSESSED. THERE IS A LARGE DARK PURPLE HEMATOMA TO THE RIGHT INCISION WHICH HAS SOME SCANT ACTIVE DRAINAGE. PRESSURE APPLIED WITH GAUZE. HERB APPLIED 4X4'S FOLDED OVER EACH INCISION AND LARGE TEGADERM X2. THERE IS CURRENTLY ONLY A TRACE AMOUT OF DRAINAGE AT THE EDGE OF THE GAUZE TO THE UPPER LEFT CORNER. PATIENT UP TO RECLINER W/ PHYSICAL THERAPY THIS AM AFTER AMB IN RM. AMBULATED AGAIN IN ROOM AT 1130 AND ASSISTED BACK TO BED D/T INCREASED BACK PAIN. PATIENT TOLERATING PAIN W/ 2-3/10 PAIN AT REST, AND UP TO 6-8/10 PAIN WITH ACTIVITY. PATIENT DOES APPEAR MILDLY SOB AT TIMES EVEN AT REST. MAINTAINS ADEQUATE SATS ON RA. STATES, MY BREATHING IS ALWAYS LIKE THIS. PATIENT IS A COOPERATIVE AND PLEASANT GENTLEMAN.
[2020-02-15] MEDS: hydrOXYzine pamoate 25 MG CAPSULE PO (16:23)
--- NOTE | 2020-02-15 17:42 | P.PN_ITS ---
Exam Vital Signs (past 8 hours): - 02/15/20 10:02 02/15/20 10:03 02/15/20 13:00 Temperature 98.1 F Pulse Rate 51 L 51 L 66 Respiratory Rate 18 Blood Pressure 128/71 128/71 140/75 Pulse Oximetry 94 02/15/20 15:37 Temperature 96.9 F L Pulse Rate 77 Respiratory Rate 20 Blood Pressure 140/72 Pulse Oximetry 97 Oxygen Delivery Method Room Air Oxygen Flow Rate 0 Objective Labs Result Diagrams: 02/15/20 06:00 02/14/20 10:42 Labs: Laboratory Results - last 24 hr 02/15/20 06:00 Hgb 11.3 L Hct 33.7 L Assessment & Plan Assessment & Plan narrative: Patient is POD#1 s/p L3-5 TLIF. He walked in the [address] with PT today. There was a dressing change this AM with NEHAL Rodriguez for saturated right sided gauze. On exam, his dressing has serosangunous fluid on the dressing, more on the right side. He is neuro intact on exam. He reports he feels better when leaning on his right side, unchanged compare to before surgery. He reports he already feel a lot better now than before surgery. I changed his dressing and applied gauze and abd pad with some thickness for pressure dressing on the wound. There is no active bleeding or oozing after removing the old gauze. The incisions are perfectly dry. There is echymosis on the skin adjacent to the incision, stephanie are intact without any dehiscience. He is doing quite well 1 day after his surgery. He needs additional PT for mobility training. He may need home health or inpatient rehab depending on how he does tomorrow with PT. His pain is controlled well by the current protocol. If he's still here on Monday, I will re-assess him. He will be seen by the on- call orthopedist tomorrow. He is currently stable without acute issues. Continue current medical management. Quality VTE Deep Vein Thrombosis/Pulmonary Embolism Present on Admission: No
[2020-02-15] MEDS: SENNOSIDES 8.6 MG TABLET 17.2 MG PO (20:34)
[2020-02-15] MEDS: TRAZODONE 50 MG TABLET 150 MG PO (20:34)
[2020-02-15] MEDS: ATORVASTATIN 20 MG TABLET 40 MG PO (20:34)
[2020-02-16] VITALS (8 sets, daily range): BP systolic 121–140; BP diastolic 63–85; PULSE 51–84; RESP 16–22; TEMP 36.1–37; O2SAT 91–98
[2020-02-16] MEDS: OXYCODONE IR 10 MG TABLET PO ×4 (05:14→20:50)
[2020-02-16] MEDS: MAGNESIUM HYDROXIDE 30 ML UDC PO (08:00)
[2020-02-16] MEDS: HYDROMORPHONE 0.5 MG INJ IV ×2 (08:00→09:51)
[2020-02-16] MEDS: AMLODIPINE 5 MG TABLET PO (08:02)
[2020-02-16] MEDS: GABAPENTIN 300 MG CAPSULE 900 MG PO ×2 (08:02→20:49)
[2020-02-16] MEDS: DOCUSATE 100 MG CAPSULE PO ×2 (08:02→20:49)
[2020-02-16] MEDS: METOPROLOL ER 50 MG TABLET PO (08:02)
[2020-02-16] MEDS: CYANOCOBALAMIN (VITAMIN B-12) 500 MCG TABLET 1000 MCG PO (08:02)
[2020-02-16] MEDS: LOSARTAN 25 MG TABLET PO (08:02)
[2020-02-16] MEDS: POTASSIUM CHLORIDE 10 MEQ TAB PO (08:02)
[2020-02-16] MEDS: VIT C/E/ZN/COPPR/LUTEIN/ZEAXAN CAPSULE 1 CAP PO ×2 (08:03→20:54)
[2020-02-16] MEDS: SODIUM CHLORIDE 0.9% FLUSH 10 ML IV ×2 (08:03→20:50)
[2020-02-16] MEDS: FUROSEMIDE 20 MG TABLET PO (08:03)
[2020-02-16] MEDS: ACETAMINOPHEN 325 MG TABLET 650 MG PO (08:03)
[2020-02-16] MEDS: IPRATROPIUM BROMIDE 0.03% 2 EACH NASAL ×2 (08:03→20:54)
[2020-02-16] MEDS: ESCITALOPRAM 10 MG TABLET 20 MG PO (08:03)
[2020-02-16] MEDS: FOLIC ACID 0.4 MG TABLET 1.2 MG PO (08:03)
[2020-02-16] MEDS: FLUTICASONE 120 SPRAY/16 GM SPRAY.SUSP NASAL (08:06)
--- NOTE | 2020-02-16 09:12 | CM.DPC ---
Addendum entered by Soni Reyes R.N. 02/16/20 10:44: Patient's daughter, Mago, called, stated, she's concerned that if her dad needs more help at home, her mom might not be able to help, since she can't lift. Daughter indicated, I work 40 hours a week, and can't be there all the time. Asked her if she has communicated this with her mother. According to P.T. notes, he is a one person assist, has been bearing weight. Called , with patient' s permission regarding concerns. 's name is Shoshana. Shoshana stated, she won't be able to lift him. She stated that she was here yesterday in his room and noticed that he was doing things like twisting and turning, which he's not supposed to do. Let her know that he would be working with P.T. again. Also, patient has not wanted rehab. After discussion, decided to send referral over to [facility] for review, since he would qualify under Medicare rule. stated, she would talk this over with her daughter today. Dr. Kerr has seen patient and stated that he should be discharging tomorrow. Updated Sonia in admissions at [facility] regarding patient. They do have availability. Will also consult with P.T. today as well. Original Note: DCP Cont: Checked in with patient. He was laying in bed, increased pain. Briefly discussed discharge planning, to ensure that patient wants to go home versus going to skilled rehab. Patient stated, he would be open to home health. Patient has no preference of agencies. Physical therapy has recommended home with assistanfe. P: DCP to continue to follow. Will pursue home health for patient, when he is medically stable for discharge. Soni Reyes RN/Gastroenterology Teacher
--- NOTE | 2020-02-16 09:50 | PM.PNPO.1 ---
Subjective Subjective Date Patient Seen: 02/16/20 Time Patient Seen: 09:50 Interval history: The patient is still having quite a bit of pain. The pain is in the low back and posterior hip area and goes down the right leg to about the mid thigh area posteriorly. He does report that the pain is still somewhat better than before surgery. He has had an issue with bloody drainage from his wound. The dressing was changed yesterday morning and twice since then. Exam Vital Signs (past 8 hours): - 02/16/20 03:35 02/16/20 08:13 02/16/20 09:09 Temperature 97.7 F 98.6 F Pulse Rate 51 L 55 L 57 L Respiratory Rate 16 20 16 Blood Pressure 130/74 136/71 Pulse Oximetry 97 94 98 Oxygen Delivery Method Room Air Oxygen Flow Rate 0 Narrative Exam Narrative: The dressing was saturated with blood. The dressing was removed. There was no evidence of any active bleeding. There was significant ecchymoses around the right-sided incision. There is expected swelling. Lower extremity exam is neurovascularly intact. Objective Labs Result Diagrams: 02/15/20 06:00 02/14/20 10:42 Assessment & Plan Post-op Postoperative Procedures: Procedures Operation Date: 02/14/20 11:15 Actual Procedures Side Surgeon p L3-4, L4-5 TLIF w. posterior instrumentation Maris Sierra MD Postoperative day: 2 Postoperative plan narrative: Patient's dressing was changed today. There is a moderate amount of blood on the dressing but no active bleeding today. We will recheck the dressing later today. He is still progressing slow with physical therapy due to pain. Will continue with the current pain regimen. Will progress with physical therapy as possible. Consider discharge tomorrow. Time Spent With Patient Time with patient: less than 15 minutes Quality VTE Deep Vein Thrombosis/Pulmonary Embolism Present on Admission: No
[2020-02-16] MEDS: hydrOXYzine pamoate 25 MG CAPSULE PO (09:54)
--- NOTE | 2020-02-16 10:10 | PC.NURSE ---
Addendum entered by Jonah Ross R.N. 02/16/20 10:22: PATIENT RATES PAIN 2/10, STATES HE IS FEELING MUCH MORE COMFORTABLE AND ABLE TO REST. Original Note: DRSG 100% SATURATED, DRSG CHANGED BY DR. OGLESBY THIS MORNING, NO ACTIVE BLEEDING, APPLIED 4X4'S ABD AND LG TEGADERM X2. PATIENT REPORTS INCREASED BACK PAIN RADIATING DOWN BACKS OF LEGS. STATES OVERALL PAIN IMPROVED FROM PRE-OP, HOWEVER LEVELS 7-9/10 THIS AM. OXY 10MG Q3HR PRN AND DILAUDID 0.5MG IVP Q2H PRN FOR BREAKTHROUGH PAIN GIVEN. HYDROXIZINE 25MG ALSO GIVEN. PATIENT WAS UP TO RECLINER FOR BREAKFAST, BUT HAD TOO MUCH PAIN AND WAS ASSISTED BACK TO BED PER HIS REQUEST. DR. OGLESBY NOTIFIED OF PAIN LEVELS, NO CHANGE TO REGIMEN AT THIS TIME, CONTINUE TO GIVE PRN'S AVAIL NEEDED. PATIENT ADJUSTED TO POSITION OF COMFORT IN BED W/ HOB APPROX 30 DEGREES AND KNEES SUPPORTED IN BENT POSITION BY BED. CALL LIGHT IN REACH, INSTRUCTED TO CALL FOR NEEDS.
--- NOTE | 2020-02-16 10:59 | PT-IP ANOTE ---
Pt refused stating he was high as a kite. Informed RN, will check back with pt this afternoon.
--- NOTE | 2020-02-16 12:36 | PT.IPTN ---
Current Diagnoses Other secondary scoliosis, lumbar region (02/14/20) Spondylolisthesis, lumbar region (02/14/20) Spinal stenosis, lumbar region without neurogenic claudication (02/14/20) Surgery Performed Operation Date: 02/14/20 11:15 Actual Procedures p L3-4, L4-5 TLIF w. posterior instrumentation - Maris Sierra MD Physical Therapy Treatment Note M2 PT-IP Current Condition Start: 02/15/20 13:04 Freq: NEEDED Status: Active Protocol: Document 02/15/20 09:40 AB (Rec: 02/15/20 13:30 AB [id number]) Physical Therapy Current Condition Current Condition Evaluation Date 02/15/20 Treatment Diagnosis s/p L3-4, L4-5 fusion/lami; difficulty in walking Onset Date 02/14/20 Precautions Lumbar Precautions Log Roll,No Twisting,Limit Bending,Lifting Restriction of 10 lbs,Gait Belt above Incisional Area M3 PT-IP Subjective Start: 02/15/20 13:04 Freq: NEEDED Status: Active Protocol: Document 02/16/20 12:19 CLB (Rec: 02/16/20 12:52 CLB [id number]) Subjective Physical Therapy Visit Type Type Treatment Note Visit Start Time 12:19 Visit Stop Time 12:36 Total Visit Minutes 17 Number of TRANSLATOR Visits 1 Physical Therapy Visit Comments Patient Comments Pt agreeable to ambulate with therapy Therapy Pain Assessment Pain When Pain Assessed At Rest Pain Present Pain Present Pain Reported Location back Intensity 7 Scale Used increases with mobility Pain Management Techniques Modification of Treatment,Re- positioning,Timing of Activity with Medications M4 PT-IP Mobility and Gait Start: 02/15/20 13:04 Freq: NEEDED Status: Active Protocol: Document 02/16/20 12:19 CLB (Rec: 02/16/20 12:52 CLB [id number]) PT-Transfer Assessment Sit to and From Stand Sit to and from Stand Minimal Assistance,1 Person Assistance,Use of Upper Extremities Equipment Transfer Assistive Device Gait Belt,Front Wheeled Walker Transfers Transfer Destination Chair Transfer Ability Level of Assist Contact Guard Assistance, Minimal Assistance,1 Person Assistance,Use of Upper Extremities Comments Mobility Comments Pt required Min A with use of momentum to stand, pt unable to come to full stand until third try due to pain. Pt with increased pain during ambulation c/o pain into buttocks and down right leg. Pt required two standing rest breaks. Pt able to sit CGA in chair. Left pt in chair with all needs within reach RN present. Gait Assessment Gait Gait Assistance Required: Contact Guard Assist,1 Person Assist Distance (Feet) 75 Able to Maintain Weight Bearing Status Yes During Gait Assistive Devices Assistive Device Gait Belt,Front Wheeled Walker Orthotic/Prosthetic Devices or Brace: No Gait Deviations General Gait Pattern Antalgic,Decreased Stride Length,Decreased Feet Clearance,Flexed Trunk Factors Limiting Gait Function Factors Limiting Gait Function Decreased Activity Tolerance, Decreased Strength,Limited Range of Motion,Pain,Poor Balance Comments Gait Comments Pt ambulated w/FWW/CGA with need for standing rest break due to pain and cues for posture. Stair Climbing Assessment Comments Stair Climbing Comments Unable due to pain. M5 PT-IP Objective Assessments Start: 02/15/20 13:04 Freq: NEEDED Status: Active Protocol: Document 02/15/20 09:40 AB (Rec: 02/15/20 13:30 AB [id number]) Orientation Orientation/Cognition Level of Alertness Alert Orientation Name,Place,Situation Language Function Ability Hard of Hearing Safety Awareness Understands Safety Issues Memory Description No Deficits Noted Gross Range of Motion Lower Extremity ROM Assessment Within Functional Limits Strength Lower Extremity Strength Assessment Within Functional Limits Sensation Assessment Sensation Gross Sensation Right LE Impaired Comments Sensation Comments stated that RLE has decrease sensation and can only feel ~ 90% Muscle Tone Muscle Tone WNL Yes M6 PT-IP Treatment Start: 02/15/20 13:04 Freq: NEEDED Status: Active Protocol: Document 02/15/20 14:30 AB (Rec: 02/15/20 16:40 AB [id number]) Physical Therapy Treatment Education Education Provided Precautions,Safety M7 PT-IP Assessment and Plan Start: 02/15/20 13:04 Freq: NEEDED Status: Active Protocol: Document 02/16/20 12:19 CLB (Rec: 02/16/20 12:52 CLB [id number]) PT Summary Assessment and Plan Summary Impairments Pain,ROM,Strength,Balance, Coordination,Sensation,Bed Mobility,Transfers,Gait, Activity Tolerance Progress Towards Goals Slow Progress due to Pain Assessment Summary Pt unable to increase ambulation due to increased pain during mobility. Pt requiring increased assist with sit-stand due to pain and requires CGA for ambulation with FWW. Goals Bed Mobility Goal Independent Transfer Goal Independent,Front Wheeled Walker Gait Goal Standby Assistance,Front Wheel Walker Gait Distance 100 Other Goals up/down 2 steps SPC on L and R side ledge SBA Days to Meet Goals 5 Frequency of Treatment Frequency Of Treatment Twice a Day Treatment Plan Physical Therapy Treatment Plan Bed Mobility Training,Transfer Training,Gait Training, Therapeutic Exercise,Balance Retraining,Post Op Education, Discharge Planning,Hot or Cold Pack,Neuromuscular Re-ed, Coordination Retraining,Manual Therapy Other Recommendations and Next Treatment ambulation; stair climbing if Focus able. Recommendations To Nursing Amount of Assist Needed 1 Person Assist Discharge Recommendations PT Discharge Recommendations Home with Assistance Transportation Needs at Discharge Private Vehicle
--- NOTE | 2020-02-16 12:38 | CM.DPC ---
Addendum entered by Soni Reyes R.N. 02/16/20 15:24: Sonia at [facility] called back and stated that they can accept patient tomorrow. Addendum entered by Soni Reyes R.N. 02/16/20 14:24: Called Sonia at [facility] to follow up to see if they can accept. Sonia indicated, will have to see, and call you back, for we are expecting a couple of admits. Let her know that this patient is expected to discharge tomorrow. Went ahead and sent a referral to [facility] as well, and left Anna in admissions a message. Met with patient, daughter in the room. Let him know 's concerns about him going home right away. Stated he would be willing to think about going to rehab. Stated, can follow up with him in the morning, In the meantime, [facility] will call back, and will need to follow up tomorrow as well. [facility] was sent referral as back up. Original Note: DCP Cont: Spoke to patient's , Shoshana. She stated that she talked it over with her daughter, Mago, who is medical power of police justice. They also have a son named Emile, who is also power of police justice. Discussed facilities, [facility], [facility] They are hoping that patient can go to [facility]. Gave her the number of admissions if she had any questions about the facility. Have already faxed referral. Let know that they may want to discuss with patient, for he has refused to go. Younger daughter is planning on coming to visit later today. Patient has had pain issues today, and was given pain medications. Dressing has also been saturated. is concerned that if he goes home, there's no one to help him to the bathroom at night, or even during the day if he needs it. She and family will be discussing with patient. Will go ahead and complete PASSR. P: DCP to continue to follow. [facility] has referral, should be able to accept him. Other option is home with home health. Soni Reyes RN/Instructor Technical Training
[2020-02-16] MEDS: TRAZODONE 50 MG TABLET 150 MG PO (20:50)
[2020-02-16] MEDS: SENNOSIDES 8.6 MG TABLET 17.2 MG PO (20:50)
[2020-02-16] MEDS: ATORVASTATIN 20 MG TABLET 40 MG PO (20:50)
[2020-02-17] VITALS (7 sets, daily range): BP systolic 125–146; BP diastolic 61–92; PULSE 51–67; RESP 16–18; TEMP 36.3–36.7; O2SAT 95–98
[2020-02-17] MEDS: OXYCODONE IR 10 MG TABLET PO (07:54)
[2020-02-17] MEDS: MAGNESIUM HYDROXIDE 30 ML UDC PO (07:54)
[2020-02-17] MEDS: CYANOCOBALAMIN (VITAMIN B-12) 500 MCG TABLET 1000 MCG PO (07:57)
[2020-02-17] MEDS: DOCUSATE 100 MG CAPSULE PO (07:57)
[2020-02-17] MEDS: GABAPENTIN 300 MG CAPSULE 900 MG PO (07:58)
[2020-02-17] MEDS: POTASSIUM CHLORIDE 10 MEQ TAB PO (07:58)
[2020-02-17] MEDS: METOPROLOL ER 50 MG TABLET PO (08:01)
[2020-02-17] MEDS: FUROSEMIDE 20 MG TABLET PO (08:03)
[2020-02-17] MEDS: AMLODIPINE 5 MG TABLET PO (08:03)
[2020-02-17] MEDS: LOSARTAN 25 MG TABLET PO (08:04)
[2020-02-17] MEDS: FLUTICASONE 120 SPRAY/16 GM SPRAY.SUSP NASAL (08:05)
[2020-02-17] MEDS: ESCITALOPRAM 10 MG TABLET 20 MG PO (08:05)
[2020-02-17] MEDS: VIT C/E/ZN/COPPR/LUTEIN/ZEAXAN CAPSULE 1 CAP PO (08:05)
[2020-02-17] MEDS: FOLIC ACID 0.4 MG TABLET 1.2 MG PO (08:05)
[2020-02-17] MEDS: SODIUM CHLORIDE 0.9% FLUSH 10 ML IV (08:06)
[2020-02-17] MEDS: IPRATROPIUM BROMIDE 0.03% 2 EACH NASAL (08:06)
--- NOTE | 2020-02-17 08:20 | CM.DPC ---
Addendum entered by RUDDY Benson 02/17/20 12:58: ADD: Ortho MD rounding on pt now and planning to d/c to SNF after bedside discussion with pt and spouse. RN helping with new COVID test and getting med rec and scripts from for [facility]. SW called Leni at [facility] and confirmed they can accept and likely transport around 1415. SW to fax d/c packet to [facility]. BF Addendum entered by RUDDY Benson 02/17/20 08:57: ADD: SW met bedside with pt and explained role and provided pt's Medicare Message and he acknowledged understanding and signed his Medicare Message. SW inquired about plan of SNF and pt confirms he is feeling ongoing pain and itching from his surgery and feels SNF needed before going home. SW helped to get spouse on the phone and she will be bedside later this morning. SW to follow for Ortho team to round to determine if pt ready for d/c. BF Original Note: DCP SNF planning: SW received a call from pt's stating that in discussion with the pt and herself they have decided safest option at d/c is to SNF and confirms preference is [facility]. Spouse will be bedside this morning. SW updated RECREATIONAL SPORTS DIRECTOR on SNF plan for likely today if pt stable and requested to update RN who is in pt room so that Ortho can be aware of SNF preference for d/c. Plan: SW to follow for Ortho to round to determine if pt stable for d/c with plan of [facility] SNF before safe return home. RUDDY Benson
--- NOTE | 2020-02-17 11:17 | OT.IP.TRT ---
Current Diagnoses Other secondary scoliosis, lumbar region (02/14/20) Spondylolisthesis, lumbar region (02/14/20) Spinal stenosis, lumbar region without neurogenic claudication (02/14/20) Surgery Performed Operation Date: 02/14/20 11:15 Actual Procedures p L3-4, L4-5 TLIF w. posterior instrumentation - Maris Sierra MD Occupational Therapy Treatment Note M2 OT-IP Current Condition Start: 02/15/20 15:32 Freq: Status: Active Protocol: Document 02/15/20 15:34 RM (Rec: 02/15/20 15:53 RM [id number]) Occupational Therapy Current Condition Current Condition Evaluation Date 02/15/20 Treatment Diagnosis L3-L5 TLIF d/t spondylolisthesis Diagnosis Onset Date 02/15/20 Post Operative Precautions Lumbar Precautions Log Roll,No Twisting,Limit Bending,Lifting Restriction of 10 lbs,Gait Belt above Incisional Area Weight Bearing Status Weight Bearing Status Weight Bear as Tolerated M3 OT- IP Subjective and Pain Start: 02/15/20 15:32 Freq: Status: Active Protocol: Document 02/17/20 11:30 [facility] (Rec: 02/17/20 11:47 [facility] [id number]) OT- Subjective Occupational Therapy Visit Type Type Treatment Note Visit Start Time 10:50 Visit Stop Time 11:17 Total Visit Minutes 27 Occupational Therapy Visit Comments Patient Comments Pt intially not wanting to get up as hurting too much, in addition not wanting to shower at this time. Patient/Caregiver Goals Return home with his . OT Pain Assessment Pain When Pain Assessed During Mobility Pain Present Pain Present Pain Reported Location back Intensity 20 Scale Used Numeric (0 - 10) Description Shooting,Stabbing Management Techniques Apply Cold,Re-positioning M4 OT- IP ADL's Start: 02/15/20 15:32 Freq: Status: Active Protocol: Document 02/17/20 11:30 [facility] (Rec: 02/17/20 11:47 [facility] [id number]) OT [id number] Comments OT Self-Feeding Comments NOt at meal time. OT ADL-Grooming Comments OT Grooming Comments Pt states not wanting to do at this time. Reminded pt of back precautions to spit into a spit or lean at his hips to best follow back precautions for needs. OT ADL-Dressing Comments OT Dressing Comments NOt performed. OT ADL-Toileting Comments OT Toileting Comments Educated pt on possible use of toilet paper aid to assist for wiping needs. OT ADL-Bathing Bathing Type Bathing Type Sponge Bath General Evaluation Bathing Ability Moderate Assistance Comments OT Bathing Comments Pt agreed to sponge off his chest and arms, and needing assist for his back. Pt complain of being itchy, nurse notified M6 OT- IP Functional Cognition Start: 02/15/20 15:32 Freq: Status: Active Protocol: Document 02/17/20 11:30 [facility] (Rec: 02/17/20 11:47 [facility] [id number]) Cognitive Factors Limiting Selfcare Function Cognitive Ability Level of Alertness Alert Patient Orientation Name,Month,Date,Year,Place, Situation Attention Span Ability Capable of Focused Attention, Capable of Sustained Attention Ability to Follow Commands Able to Follow Multi-Step Commands Safety Awareness Underestimates Need for Assistance M7 OT- IP Mobility and Balance Start: 02/15/20 15:32 Freq: Status: Active Protocol: Document 02/17/20 11:30 [facility] (Rec: 02/17/20 11:47 [facility] [id number]) OT-Transfer Assessment Sit to and From Stand Sit to and from Stand Moderate Assistance,Maximum Assistance,1 Person Assistance Comments Mobility Comments Pt needing 3 attempts to stand from the FWW and needing MODA to MAX A X 1 to stand to the FWW. Pt states having too much pain through his right leg and needing to sit back down. Nursing notified and of intermittent pain during positioning , she states to take to ortho whether steroids may be beneficial for the pt. OT- Gait Assessment Comments Gait Ability Comments Pt only able to tolerate standing at this time. OT- Balance Assessment Sitting Balance and Reactions Static Sitting Balance Ability Good M9 OT- IP Assessment and Plan Start: 02/15/20 15:32 Freq: Status: Active Protocol: Document 02/17/20 11:30 [facility] (Rec: 02/17/20 11:47 [facility] [id number]) OT Summary Assessment and Plan Potential Rehabilitation Potential Good Analytic Complexity at Evaluation Moderate Summary OT Impairments Pain,Balance,Functional Mobility,Dressing,Toileting, Bathing,Toilet Transfers, Shower Transfers,Activity Tolerance Progress Towards Goals Slow Progress due to Pain,Slow Progress due to Medical Issues Assessment Summary Pt main issues now pain and not able to tolerate standing at this time. Pt looking to go to skilled rehab when medically stable. Able to educate pt regarding a toilet paper aid would be beneficial to increase pt's independence to wipe. Goals Dressing Goal Independent,Tap Dancer,Sock Aid Toileting Goal Independent Bathing Goal Independent Toilet Transfer Goal Independent Shower Transfer Goal Independent Days to Meet Goals 5 Frequency of Treatment Frequency Of Treatment Once a Day Treatment Plan OT Treatment Plan ADL Training,Functional Mobility,Patient/Family Education,Discharge Planning Discharge Recommendations OT Discharge Recommendations SNF Rehab Home Equipment Needs defer to SNF
[2020-02-17] MEDS: hydrOXYzine pamoate 25 MG CAPSULE PO (11:26)
--- NOTE | 2020-02-17 12:16 | PT-IP ANOTE ---
Pt refused due to severe pain in right buttocks and leg.Will check back with pt after lunch.
--- NOTE | 2020-02-17 13:04 | P.PN_ITS ---
Exam Vital Signs (past 8 hours): - 02/17/20 07:15 02/17/20 07:39 02/17/20 08:01 Temperature 97.7 F Pulse Rate 51 L 55 L 55 L Respiratory Rate 18 18 Blood Pressure 146/72 H 146/72 H Pulse Oximetry 96 96 02/17/20 08:04 Temperature Pulse Rate 55 L Respiratory Rate Blood Pressure 146/72 H Pulse Oximetry Oxygen Delivery Method Room Air Oxygen Flow Rate 0 Objective Labs Result Diagrams: 02/15/20 06:00 02/14/20 10:42 Assessment & Plan Assessment & Plan narrative: POD#3 s/p lumbar fusion Patient complains of right hip and leg pain that is limiting his mobility, sl ightly worse today than Monday. On exam, he's neuro intact and back dressing clean and dry w/o any bloody drainage on it, last changed yesterday. Patient is cleared to be transferred to SNF today. Patient is okay by me to transfer to SNF today. F/u in 12 days for stephanie removal. Quality VTE Deep Vein Thrombosis/Pulmonary Embolism Present on Admission: No
[2020-02-17 13:43] LABS: COVID19 -Nasal RAPID Negative (Negative)
--- NOTE | 2020-02-17 13:44 | PT-IP ANOTE ---
Pt continues to refuse therapy due to pain, provided pt with ice for back, no charge. Pt to d/c today @ 1400.
--- NOTE | 2020-02-17 14:27 | PC.NURSE ---
Day shift note: Patient awake, alert, and cooperatively pleasant. C/O pain to lower back 8/10, radiating to left lateral thigh with mild numbness. Medicated with Oxycodone 10 mg PO, on reassessment pain 3/10, states pain level is tolerable. Up OOB to BR, 1 PA FWW, slow to mobilize initially and requires redirecting. Voiding without difficulty. VSS and afebrile. Hematoma to right side of surgical incision noted, generalized bruising to lower back, left and right flank, R > L. Mariela Kovacs at bedside this afternoon, updated patient and spouse regarding further care at [facility] until patient ready to go home. Dressing CDI. Per Dr. Sierra patient to F/U in 10 days for removal of stephanie. Report given to Sylvia GUERRERO, receiving nurse at [facility]. All questions answered, COVID - Transported via WC in stable condition, accompanied by transport staff. Patient belongings placed in bag, including CPAP, and nasal INH, in addition to own walker. Reviewed [facility] visiting policies with spouse (Shoshana).
== END 2020-02-17 14:41 | DRG 454 ==
PROVIDERS: Physician Assistant Surgical; Admitting Provider Orthopaedic Surgery Orthopaedic Surgery of the Spine; Referring Provider Orthopaedic Surgery Orthopaedic Surgery of the Spine; Visit Provider Orthopaedic Surgery Orthopaedic Surgery of the Spine
PROC: 0SG10AJ Fusion of 2 or more Lumbar Vertebral Joints with Interbody Fusion Device, Posterior Approach, Anterior Column, Open Approach (ICD-10-PCS; principal; 2020-02-14 11:15)
DX: M41.56 Other secondary scoliosis, lumbar region (principal); Z68.41 Body mass index [BMI] 40.0-44.9, adult; I10 Essential (primary) hypertension; M43.16 Spondylolisthesis, lumbar region; M48.062 Spinal stenosis, lumbar region with neurogenic claudication; E78.5 Hyperlipidemia, unspecified; I25.10 Atherosclerotic heart disease of native coronary artery without angina pectoris; E66.01 Morbid (severe) obesity due to excess calories; I65.29 Occlusion and stenosis of unspecified carotid artery; F10.10 Alcohol abuse, uncomplicated; G89.18 Other acute postprocedural pain; Z87.891 Personal history of nicotine dependence; Z11.59 Encounter for screening for other viral diseases
CPT/HCPCS: 36415; 72100; 76000; 80053; 85014; 85018; 85025; 86850; 86900; 86901; 87635; 94760; 97116; 97161; 97166; 97530; 97535; C1776; C9290; J0131; J0330; J0461; J0690; J1100; J1170; J2250; J2405; J2704; J3010; J3410